=== PATIENT | male | born 1940 | race Caucasian/White ===

== ENCOUNTER → 2023-03-28 12:27 | Outpatient (CLI) | payer OTHER, SELFPAY ==
--- NOTE | 2023-03-28 12:31 | DI.CT.S_ITS ---
PROCEDURE: CT ANGIO CHEST ABDOMEN PELVIS INDICATIONS: Aneurysm of the ascending aorta, without rupture TECHNIQUE: Precontrast 5 mm thick sections acquired from the lung apices to the iliac crests. After the administration of intravenous contrast, 2.5 mm thick sections again acquired from the lung apices to the iliac crests. Maximum intensity projection (MIP) oblique sagittal and coronal reformats were then acquired. For radiation dose reduction, the following was used: automated exposure control. COMPARISON: [facility], CT, ANGIOGRAPHY CHEST, 08/19/2013, 9:28. FINDINGS: Image quality: Excellent. CHEST: Lungs and pleura: Mild left basilar atelectasis, otherwise no acute air space opacities. No pleural effusions or pneumothorax. Central and peripheral airways are patent and normal in caliber. Mediastinum: Heart size is normal. The coronary arteries have atherosclerotic calcifications. No pericardial effusion. No mediastinal adenopathy by size criteria. The thoracic aorta is aneurysmally dilated in the ascending portion measuring up to 4.8 cm. Esophagus is normal in caliber. No hiatal hernia. Chest wall: No axillary or supraclavicular adenopathy by size criteria. Thyroid gland is normal . ABDOMEN: Liver: The liver has no mass or intrahepatic biliary ductal dilatation. Biliary: The gallbladder has no gallstones, pericholecystic fluid, gallbladder wall thickening, or surrounding inflammatory change. Pancreas: The pancreas has no mass or ductal dilatation. There is no surrounding inflammation. Spleen: Normal size. There are no masses. Adrenals: No hypertrophy or nodules. Kidneys: No obstructive calculus or hydronephrosis. 1.2 cm simple cyst of the left midpole laterally. 2.0 cm simple cyst of the left midpole posteriorly. No solid mass. No cystic mass. Bowel: The distal esophagus and stomach are normal. The small bowel has a normal caliber and appearance. The terminal ileum is normal. The large bowel has a normal caliber and appearance. The appendix is normal. No free fluid or air. Nodes and vessels: No retroperitoneal or mesenteric adenopathy by size criteria. Aorta and inferior vena cava are normal in size. Abdominal wall: No abdominal wall mass or hernia. PELVIS: Genitourinary: The bladder has no wall thickening or mass. No bladder calcifications. Bone: No suspicious bony lesions. No vertebral body compression fractures. IMPRESSION: Aneurysmal dilatation of the ascending aorta measuring 4.8 cm, unchanged compared to a remote CT on 08/09/2013. Dictated by: Vega Gaxiola M.D. on 03/28/2023 at 15:33 Approved by: Vega Gaxiola M.D. on 03/28/2023 at 15:42
[2023-03-28 13:00] LABS: Estimated Glomerular Filt Rate > 60 mL/min (>60)
== END ==
PROVIDERS: Radiology Diagnostic Radiology; Family Provider Family Medicine; PCP Internal Medicine; Referring Provider Internal Medicine Cardiovascular Disease; Visit Provider Internal Medicine Cardiovascular Disease
DX: I71.21 Aneurysm of the ascending aorta, without rupture (principal)
CPT/HCPCS: 36415; 71275; 74174; 82565; Q9967

== ENCOUNTER → 2023-06-27 15:14 | Outpatient (CLI) | payer OTHER, SELFPAY ==
--- NOTE | 2023-06-27 15:15 | DI.RAD.S_ITS ---
PROCEDURE: XR ELBOW RT MIN 3V INDICATIONS: RIGHT ELBOW PAIN TECHNIQUE: 3 views of the elbow were acquired. COMPARISON: None. FINDINGS: Bones: No fractures or dislocations. No suspicious bony lesions. Degenerative changes with joint space narrowing and osteophytosis. Soft tissues: No elbow joint effusion. No suspicious soft tissue calcifications. IMPRESSION: No acute bony abnormality or significant joint effusion. Dictated by: John Berry M.D. on 06/27/2023 at 16:10 Approved by: John Berry M.D. on 06/27/2023 at 16:10
--- NOTE | 2023-06-27 15:15 | DI.RAD.S_ITS ---
PROCEDURE: XR HAND RT MIN 3V INDICATIONS: RIGHT HAND NUMBNESS AND PAIN TECHNIQUE: 3 views of the hand(s) acquired. COMPARISON: None. FINDINGS: Bones: No fractures or dislocations. Carpal bones are normally aligned. No suspicious bony lesions. Interphalangeal joint space narrowing with osteophytosis. Soft tissues: No suspicious soft tissue calcifications. IMPRESSION: No acute bony abnormality. Moderate interphalangeal osteoarthritis, within normal limits for age. Dictated by: John Berry M.D. on 06/27/2023 at 16:09 Approved by: John Brery M.D. on 06/27/2023 at 16:10
--- NOTE | 2023-06-27 15:15 | DI.RAD.S_ITS ---
PROCEDURE: XR CERVICAL SPINE 4V OR 5V INDICATIONS: NECK PAIN TECHNIQUE: 5 views of the cervical spine acquired. COMPARISON: None. FINDINGS: Bones: No fractures or dislocations to the T1 level. Severe disc height loss at C5-6, C6-7. Moderate disc height loss at the C4-5, C3-4. Mild disc height loss at remaining levels. Diffuse facet arthrosis. Neural foramen maintain their bony patency. Soft tissues: No prevertebral soft tissue swelling. 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 Dictated by: John Berry M.D. on 06/27/2023 at 16:08 Approved by: John Berry M.D. on 06/27/2023 at 16:09
== END ==
PROVIDERS: Family Provider Family Medicine; PCP Internal Medicine; Referring Provider Physical Medicine & Rehabilitation; Visit Provider Physical Medicine & Rehabilitation
DX: M47.812 Spondylosis without myelopathy or radiculopathy, cervical region (principal); M50.31 Other cervical disc degeneration, high cervical region; M19.041 Primary osteoarthritis, right hand; R20.0 Anesthesia of skin; M25.521 Pain in right elbow
CPT/HCPCS: 72050; 73080; 73130

== ENCOUNTER → 2023-07-18 14:10 | Outpatient (CLI) | payer MEDICARE, OTHER, SELFPAY ==
[2023-07-18 16:22] LABS: Add Manual Diff / Slide Review NO; Basophils Absolute Auto 0 /uL (0-100); Basophils Percent Auto 0.5 % (0-2); Eosinophils Absolute Auto 500 /uL (0-450); Eosinophils Percent Auto 8.2 % (2-4); Hematocrit 40.9 % (41-53); Hemoglobin 13.5 g/dL (13.5-17.5); Lymphocytes Absolute Auto 2300 /uL (1100-4500); Lymphocytes Percent Auto 37.5 % (25-40); Mean Corpuscular HGB Conc 33.1 % (30-36); Mean Corpuscular Hemoglobin 30.2 PG (26-34); Mean Corpuscular Volume 91.4 fL (80-100); Monocytes Absolute Auto 800 /uL (0-900); Monocytes Percent Auto 12.7 % (3-14); Neutrophils Absolute Auto 2500 /uL (1500-7000); Neutrophils Percent Auto 41.1 % (50-75); Platelet Count 156 X10^3/uL (150-400); Red Blood Cell Count 4.47 X10^6/uL (4.5-5.9); Red Cell Distribution Width 13.6 % (11.6-14.8); White Blood Cell Count 6.1 X10^3/uL (4.5-11.0)
[2023-07-18 16:52] LABS: Alanine Aminotransferase 15 IU/L (<50); Alkaline Phosphatase 75 U/L (38-126); Aspartate Aminotransferase 25 IU/L (17-59); BUN Creatinine Ratio 17.9 (6-22); Bilirubin Total 0.9 mg/dL (0.2-1.3); Blood Urea Nitrogen 17 mg/dL (9-20); Calcium 9.5 mg/dL (8.4-10.2); Carbon Dioxide 39 mmol/L (22-32); Chloride 99 mmol/L (98-107); Cholesterol 157 mg/dL (140-199); Estimated Glomerular Filt Rate > 60 mL/min (>60); Globulin 4.1 g/dL (1.7-4.1); Glucose 96 mg/dL (80-110); HDL Cholesterol 45 mg/dL (40-60); HEMOLYSIS < 15 (0-50); LDL Cholesterol Calculated 88 mg/dL (<100); Potassium 4.2 mmol/L (3.4-5.1); Sodium 141 mmol/L (137-145); Total Protein 8.1 g/dL (6.3-8.2); Triglycerides 119 mg/dL (35-150)
[2023-07-18 17:21] LABS: TSH w/ Reflex to FT4 1.11 uIU/mL (0.47-4.68)
== END ==
PROVIDERS: Family Provider Family Medicine; PCP Internal Medicine; Referring Provider Internal Medicine; Visit Provider Internal Medicine
DX: E78.5 Hyperlipidemia, unspecified (principal); K59.09 Other constipation; I42.9 Cardiomyopathy, unspecified; M47.22 Other spondylosis with radiculopathy, cervical region; M70.21 Olecranon bursitis, right elbow; G56.21 Lesion of ulnar nerve, right upper limb
CPT/HCPCS: 36415; 80053; 80061; 84443; 85025; 99214

== ENCOUNTER → 2023-09-12 15:37 | Outpatient (CLI) | payer MEDICARE, OTHER, SELFPAY | PROVIDERS: Family Provider Internal Medicine; PCP Internal Medicine; Referring Provider Physical Medicine & Rehabilitation; Visit Provider Physical Medicine & Rehabilitation | DX: G56.20 Lesion of ulnar nerve, unspecified upper limb (principal); M47.812 Spondylosis without myelopathy or radiculopathy, cervical region | CPT/HCPCS: 95886; 95910 ==